=== PATIENT | female | born 1995 | race Two or more races ===

== ENCOUNTER 2023-04-11 03:39 | Emergency (ER) | payer OTHER ==
[~2023-04-11] VITALS: Ht 157.5 cm; Wt 63.5 kg
== END 2023-04-11 05:00 | disposition home or self-care (01) ==
LOC: ER 03:39
DX: M54.50 Low back pain, unspecified (principal)

== ENCOUNTER 2023-06-10 12:48 | Emergency (ER) | payer OTHER ==
[~2023-06-10] VITALS: Ht 157.5 cm; Wt 63.5 kg
== END 2023-06-10 19:41 | disposition home or self-care (01) ==
LOC: ER 12:48
DX: O20.9 Hemorrhage in early pregnancy, unspecified (principal); Z3A.01 Less than 8 weeks gestation of pregnancy

== ENCOUNTER 2023-06-11 23:16 | Emergency (ER) | payer OTHER ==
[~2023-06-11] VITALS: Ht 157.5 cm; Wt 63.5 kg
== END 2023-06-12 02:53 | disposition home or self-care (01) ==
LOC: ER 23:16
DX: O26.851 Spotting complicating pregnancy, first trimester (principal); Z3A.01 Less than 8 weeks gestation of pregnancy; R10.2 Pelvic and perineal pain

== ENCOUNTER 2023-12-31 15:18 | Emergency (ER) | payer OTHER ==
[~2023-12-31] VITALS: Ht 157.5 cm; Wt 63.5 kg
[2023-12-31] MEDS ORDERED: LACTOBACILLUS ACIDOPHILUS 1 CAP CAP PO STA (18:17)
== END 2023-12-31 18:56 | disposition home or self-care (01) ==
LOC: ER 15:19
DX: R10.84 Generalized abdominal pain (principal)

== ENCOUNTER 2024-07-09 14:40 | Emergency (ER) | payer OTHER ==
[~2024-07-09] VITALS: Ht 157.5 cm; Wt 63.5 kg
== END 2024-07-10 00:06 | disposition home or self-care (01) ==
LOC: ER 14:40
DX: O09.891 Supervision of other high risk pregnancies, first trimester (principal); Z3A.01 Less than 8 weeks gestation of pregnancy

== ENCOUNTER 2024-09-27 12:39 | Emergency (ER) | payer OTHER ==
[~2024-09-27] VITALS: Ht 157.5 cm; Wt 59.0 kg
[2024-09-27 13:04] VITALS: BP 98/66; O2SAT 95
[2024-09-27] MEDS ORDERED: DIPHENHYDRAMINE HCL 50 MG/ML VIAL 1ML IM STA (14:06)
[2024-09-27 15:18] LABS: ALBUMIN 3.3 gm/dL (3.4-5.0); ALKALINE PHOSPHATASE 44 U/L (50-136); ALT/SGPT 20 U/L (12-78); ANION GAP 8 (10.0-20.0); AST/SGOT 18 U/L (15-37); BILIRUBIN TOTAL 0.25 mg/dL (0.3-1.2); BILIRUBIN,CONJUGATED < 0.10 mg/dL (0.0-0.2); BILIRUBIN,UNCONJUGATED 0.15 mg/dL (0.0-0.6); BLOOD UREA NITROGEN 11 mg/dL (7-18); BUN CREA RATIO 23 (7.0-25.0); CALCIUM 8.8 mg/dL (8.5-10.1); CARBON DIOXIDE 26 mEq/L (21-32); CHLORIDE 109 mmol/L (98-107); CREATININE SERUM 0.48 mg/dL (0.55-1.02); GFR 151.85; GLOBULINA 3.1 G/DL (2.4-3.5); GLUCOSE FASTING 78 mg/dL (65-100); OSMOLALITY SERUM 276 MOSM/KG (275-295); POTASSIUM 3.84 mEq/L (3.5-5.1); SODIUM 139 mmol/L (136-145); TOTAL PROTEIN 6.4 gm/dL (6.4-8.2)
== END 2024-09-27 16:37 | disposition home or self-care (01) ==
LOC: ER 12:41
PROVIDERS: General Practice
DX: L29.9 Pruritus, unspecified (principal)

== ENCOUNTER 2025-02-11 22:49 | Emergency (ER) | payer OTHER ==
[~2025-02-11] VITALS: Ht 157.5 cm; Wt 60.8 kg
[2025-02-11 23:08] VITALS: BP 130/70; O2SAT 98
[2025-02-11] MEDS ORDERED: PRENATE ELITE1 EAC2 (23:11)
[2025-02-12] MEDS ORDERED: ACETAMINOPHEN 500 MG GEL..CAP PO STA (00:48)
[2025-02-12] MEDS ORDERED: DIPHENHYDRAMINE HCL 12.5 MG/5 ML BLIST.PACK PO STA (00:48)
[2025-02-12] MEDS ORDERED: ACETAMINOPHEN 500 MG GEL..CAP PO ONE (00:52)
[2025-02-12] MEDS ORDERED: DIPHENHYDRAMINE HCL 12.5 MG/5 ML BLIST.PACK PO ONE (00:52)
[2025-02-12] MEDS ORDERED: ALBUTEROL SULFATE 3 ML/2.5 MG AMPUL.NEB IH SCH (01:00)
[2025-02-12 01:26] LABS: HEMATOCRIT 32.6 % (36.0-45.00); HEMOGLOBIN 10.6 g/dL (12.0-15.00); MEAN CORPUSCULAR HEMOGLOBIN 22.2 pg (27.00-32.0); MEAN CORPUSCULAR HGB CONC 32.6 g/dl (32.0-36.0); PLATELET COUNT 178 K/uL (150-450); RED CELL DISTRIBUTION WIDTH 13.4 % (11.5-14.5)
[2025-02-12 01:27] LABS: MEAN CELL VOLUME 67.9 fL (80.00-100.00)
[2025-02-12 01:33] LABS: INR < 0.93; PARTIAL THROMBOPLASTIN TIME 25.9 SECONDS (22.0-34.0); PROTHROMBIN TIME 9.8 SECONDS (9.0-11.5)
[2025-02-12 01:36] LABS: ALBUMIN 2.5 gm/dL (3.4-5.0); BILIRUBIN TOTAL 0.31 mg/dL (0.3-1.2); CREATININE SERUM 0.66 mg/dL (0.55-1.02); GFR 105.15; GLOBULINA 4.1 G/DL (2.4-3.5); POTASSIUM 3.58 mEq/L (3.5-5.1); TOTAL PROTEIN 6.6 gm/dL (6.4-8.2)
[2025-02-12] MEDS ORDERED: ALBUTEROL SULFATE 3 ML/2.5 MG AMPUL.NEB IH ONE (01:47)
[2025-02-12 01:59] LABS: ABG PH 7.465 (7.35-7.45); ABG PO2 110.8 mmHg (80-100); ABG pCO2 29.1 mmHg (35-45); BASE EXCESS -1.9 mmol/l; BICARBONATE 20.5 mmol/l (23-25); SaO2 98.6 %; Tco2 21.4 mmol/l
[2025-02-12 02:00] LABS: PH,URINE 5.5 (5.0-8.0); URINE APPEARANCE Cloudy; URINE BILIRRUBIN Negative (NEGATIVE); URINE BLOOD Negative; URINE COLOR Yellow; URINE GLUCOSE Negative (NEGATIVE); URINE KETONE Trace (NEGATIVE); URINE LEUKOCYTE Moderate; URINE NITRATE Negative; URINE PROTEIN Trace (NEGATIVE)
[2025-02-12 02:04] LABS: URINE BACTERIA 5848.1 uL (0.0-1933); URINE EPITHELIAL CELLS 137.4 uL (0.0-38.8); URINE RBC 4.8 uL (0.0-20.8); URINE WBC 178.1 uL (0.0-23.2)
[2025-02-12 02:21] LABS: INFLUENZA A AG NEGATIVE (NEGATIVE)
[2025-02-12 02:27] LABS: COVID-19 AG POSITIVE (NEGATIVE)
[2025-02-12 02:30] LABS: URINE CAST 0.88 uL (0.0-1.40); URINE CRYSTALS MANY /HPF
[2025-02-12 04:56] LABS: allen test SATISFACTORY; mode ROOM AIR; o2 21 %; puncture site RADIAL LEFT
== END 2025-02-12 | disposition home or self-care (01) ==
LOC: ER 22:50
PROVIDERS: General Practice
DX: U07.1 COVID-19 (principal); R50.9 Fever, unspecified; J00 Acute nasopharyngitis [common cold]; Z3A.37 37 weeks gestation of pregnancy

== ENCOUNTER 2025-03-05 05:19 | Inpatient (IN) | payer OTHER ==
[~2025-03-05] VITALS: Ht 157.5 cm; Wt 63.5 kg
[~2025-03-05 05:19] MED LIST: PRENATE ELITE1 EAC2
[2025-03-05] MEDS ORDERED: RINGERS SOLUTION,LACTATED 1,000 ML IV SCH (05:30)
[2025-03-05 05:40] VITALS: BP 103/60
[2025-03-05 06:36] LABS: HEMATOCRIT 35.4 % (36.0-45.00); HEMOGLOBIN 11.5 g/dL (12.0-15.00); MEAN CORPUSCULAR HEMOGLOBIN 22.3 pg (27.00-32.0); MEAN CORPUSCULAR HGB CONC 32.6 g/dl (32.0-36.0); PLATELET COUNT 204 K/uL (150-450); RED BLOOD COUNT 5.18 M/uL (4.00-6.00); RED CELL DISTRIBUTION WIDTH 14.9 % (11.5-14.5)
[2025-03-05 06:40] LABS: PH,URINE 6.5 (5.0-8.0); URINE APPEARANCE Cloudy; URINE BILIRRUBIN Negative (NEGATIVE); URINE BLOOD Negative; URINE COLOR Yellow; URINE GLUCOSE Negative (NEGATIVE); URINE KETONE Negative (NEGATIVE); URINE LEUKOCYTE Large; URINE NITRATE Negative; URINE PROTEIN Negative (NEGATIVE)
[2025-03-05 06:44] LABS: URINE BACTERIA 4321.7 uL (0.0-1933); URINE EPITHELIAL CELLS 74.7 uL (0.0-38.8); URINE WBC 206.3 uL (0.0-23.2)
[2025-03-05 06:52] LABS: MEAN CELL VOLUME 68.4 fL (80.00-100.00)
[2025-03-05] MEDS ORDERED: VITAMINS A & D1 EACH PO (06:54)
[2025-03-05 06:56] LABS: INR < 0.93; PARTIAL THROMBOPLASTIN TIME 27.3 SECONDS (22.0-34.0); PROTHROMBIN TIME 9.6 SECONDS (9.0-11.5)
[2025-03-05 07:18] LABS: URINE RBC 0.8 uL (0.0-20.8)
[2025-03-05 07:27] LABS: ALBUMIN 2.7 gm/dL (3.4-5.0); BILIRUBIN TOTAL 0.38 mg/dL (0.3-1.2); CREATININE SERUM 0.65 mg/dL (0.55-1.02); GFR 107.02; GLOBULINA 3.8 G/DL (2.4-3.5); POTASSIUM 3.79 mEq/L (3.5-5.1); TOTAL PROTEIN 6.5 gm/dL (6.4-8.2)
[2025-03-05 07:40] VITALS: BP 101/53
[2025-03-05] MEDS ORDERED: MISOPROSTOL 25 MCG/4 ML GEL.W.APPL VAG ONE ×2 (09:15→13:30)
[2025-03-05 11:44] VITALS: BP 108/59
[2025-03-05] MEDS ORDERED: MISOPROSTOL 25 MCG/4 ML GEL.W.APPL ONE (13:22)
[2025-03-05 15:27] VITALS: BP 115/65
[2025-03-05] MEDS ORDERED: OXYTOCIN 20 UNITS/500ML RL PIGGYBAG IV ONE (17:21)
[2025-03-05] MEDS ORDERED: OXYTOCIN 500 ML IV SCH (17:30)
[2025-03-05 19:28] VITALS: BP 100/64
[2025-03-05 23:18] VITALS: BP 131/80
[2025-03-05] MEDS ORDERED: ERYTHROMYCIN BASE OPHT 1GM EACH TUBE OP ONE (23:26)
[2025-03-05] MEDS ORDERED: OXYTOCIN 20 UNITS/1000ML RL PIGGYBAG IV ONE (23:26)
[2025-03-05] MEDS ORDERED: CHLORHEXIDINE GLUCONATE 120 ML BOTTLE TOP ONE (23:27)
[2025-03-05] MEDS ORDERED: LIDOCAINE HCL 1% 10ML VIAL ONE (23:27)
[2025-03-06] VITALS (8 sets, daily range): BP systolic 77–115; BP diastolic 32–64
[2025-03-06] MEDS ORDERED: IBUprofen 600 MG TABLET PO SCH (08:00)
[2025-03-07 00:03] VITALS: BP 102/70
[2025-03-07 08:27] VITALS: BP 108/74
[2025-03-07 16:00] VITALS: BP 95/60
[2025-03-08] VITALS: BP 93/60; O2SAT 97
[2025-03-08 17:16] VITALS: BP 93/68
== END 2025-03-08 16:56 | disposition home or self-care (01) | DRG 807 ==
LOC: LDR 05:19 → OB/GYN 05:19
PROVIDERS: ADMIT Specialist; ATTEND Specialist
PROC: 3E0P7VZ Introduction of Hormone into Female Reproductive, Via Natural or Artificial Opening (ICD-10-PCS; 2025-03-05)
PROC: 4A1HXCZ Monitoring of Products of Conception, Cardiac Rate, External Approach (ICD-10-PCS; 2025-03-05)
PROC: 10E0XZZ Delivery of Products of Conception, External Approach (ICD-10-PCS; principal; 2025-03-06)
PROC: 0UQG7ZZ Repair Vagina, Via Natural or Artificial Opening (ICD-10-PCS; 2025-03-06)
PROC: 3E033VJ Introduction of Other Hormone into Peripheral Vein, Percutaneous Approach (ICD-10-PCS; 2025-03-06)
DX: O71.4 Obstetric high vaginal laceration alone (principal); Z37.0 Single live birth; Z3A.39 39 weeks gestation of pregnancy